=== PATIENT | female | born 1960 | race African-American/Black ===

== ENCOUNTER 2019-03-10 16:42 | Inpatient (IN) | payer OTHER ==
[~2019-03-10] VITALS: Ht 165.1 cm; Wt 98.0 kg
[2019-03-10 17:01] VITALS: Ht 165.1 cm; Wt 98.0 kg
[2019-03-10 18:02] LABS: BASOPHIL % 0.3 % (0-2); PLATELET COUNT 228 x10^3mcL (130-400); RED CELL DISTRIBUTION WIDTH 13.3 % (11.5-14.5)
[2019-03-10 18:06] LABS: CALCIUM 9.2 mg/dL (8.5-10.1); CARBON DIOXIDE 29.4 mmol/L (21-32); CHLORIDE SERUM 104 mmol/L (98-107); CREATININE SERUM 0.7 mg/dL (0.6-1.0); GFR1 > 60 mL/min; GLUCOSE SERUM 104 mg/dL (74-106); POTASSIUM SERUM 3.4 mmol/L (3.5-5.1); SODIUM SERUM 139 mmol/L (136-145)
[2019-03-10 18:11] LABS: ALBUMIN 3.5 g/dL (3.4-5.0); ALKALINE PHOSPHATASE 163 U/L (46-116); ALT/SGPT 99 U/L (14-59); AST/SGOT 72 U/L (15-37); BILIRUBIN TOTAL 0.9 mg/dL (0.20-1.00)
[2019-03-10 23:12] LABS: microscopic required? YES; urine erythrocyte NEGATIVE (NEGATIVE)
[2019-03-10 23:24] LABS: AMPHETAMINE QUAL UR NONE DETECTED (See below)
[2019-03-10 23:30] VITALS: BP 145/89
[2019-03-10 23:36] VITALS: BP 145/89
[2019-03-11 05:31] VITALS: BP 137/69
[2019-03-11 06:18] LABS: BASOPHIL % 0.3 % (0-2); PLATELET COUNT 221 x10^3mcL (130-400); RED CELL DISTRIBUTION WIDTH 13.6 % (11.5-14.5)
[2019-03-11 06:23] LABS: CALCIUM 9.2 mg/dL (8.5-10.1); CHLORIDE SERUM 104 mmol/L (98-107); CREATININE SERUM 0.6 mg/dL (0.6-1.0); GFR1 > 60 mL/min; GLUCOSE SERUM 121 mg/dL (74-106); MAGNESIUM 1.8 mg/dL (1.8-2.4); PHOSPHOROUS 2.5 mg/dL (2.5-4.9); POTASSIUM SERUM 3.9 mmol/L (3.5-5.1); SODIUM SERUM 138 mmol/L (136-145)
[2019-03-11 09:27] VITALS: BP 151/81
[2019-03-11 12:54] VITALS: BP 146/74
[2019-03-11 16:27] VITALS: BP 152/80
[2019-03-11 18:00] VITALS: BP 142/76
[2019-03-11 19:20] VITALS: BP 145/84
[2019-03-12 05:47] VITALS: BP 126/68
[2019-03-12 06:51] LABS: RED CELL DISTRIBUTION WIDTH 13.8 % (11.5-14.5)
[2019-03-12 06:57] LABS: CALCIUM 9.5 mg/dL (8.5-10.1); CARBON DIOXIDE 25.6 mmol/L (21-32); CHLORIDE SERUM 102 mmol/L (98-107); CREATININE SERUM 0.7 mg/dL (0.6-1.0); GFR1 > 60 mL/min; GLUCOSE SERUM 124 mg/dL (74-106); MAGNESIUM 1.9 mg/dL (1.8-2.4); PHOSPHOROUS 3.3 mg/dL (2.5-4.9); POTASSIUM SERUM 3.6 mmol/L (3.5-5.1); SODIUM SERUM 137 mmol/L (136-145)
[2019-03-12 08:04] LABS: BASOPHIL % 0 % (0-2)
[2019-03-12 08:05] LABS: PLATELET COUNT 272 x10^3mcL (130-400)
[2019-03-12 09:01] VITALS: BP 152/80
[2019-03-12 13:02] VITALS: BP 140/78
[2019-03-12 16:07] VITALS: BP 167/99
[2019-03-12 21:06] VITALS: BP 140/84
[2019-03-13 05:55] VITALS: BP 139/77
[2019-03-13 06:32] LABS: PLATELET COUNT 297 x10^3mcL (130-400); RED CELL DISTRIBUTION WIDTH 13.9 % (11.5-14.5)
[2019-03-13 06:44] LABS: BASOPHIL % 0 % (0-2)
[2019-03-13 08:25] VITALS: BP 145/70
[2019-03-13 10:17] LABS: CALCIUM 9.7 mg/dL (8.5-10.1); CARBON DIOXIDE 27.9 mmol/L (21-32); CHLORIDE SERUM 100 mmol/L (98-107); CREATININE SERUM 0.7 mg/dL (0.6-1.0); GFR1 > 60 mL/min; GLUCOSE SERUM 116 mg/dL (74-106); SODIUM SERUM 136 mmol/L (136-145)
[2019-03-13] MEDS ORDERED: SYMBICORT1 AE3 INH (11:47)
[2019-03-13] MEDS ORDERED: ZITHROMAX TRI-500 MG PO (11:48)
[2019-03-13] MEDS ORDERED: SINGULAIR10 MG PO (11:48)
[2019-03-13] MEDS ORDERED: PREDNISONE20 MG PO (11:49)
[2019-03-13] MEDS ORDERED: PREDNISONE10 MG PO (11:50)
[2019-03-13] MEDS ORDERED: PRE20 PO (11:50)
[2019-03-13] MEDS ORDERED: PREDNISONE5 MG PO (11:51)
[2019-03-13 12:27] VITALS: BP 145/70
[2019-03-13 12:53] VITALS: BP 140/82
== END 2019-03-13 14:00 | disposition home or self-care (01) | DRG 139 ==
LOC: ED 16:42 → MU 20:44
PROVIDERS: Emergency Medicine; Family Medicine; ADMIT Internal Medicine
DX: J18.9 Pneumonia, unspecified organism (principal); E87.6 Hypokalemia; R74.0 Nonspecific elevation of levels of transaminase and lactic acid dehydrogenase [LDH]; Z68.35 Body mass index [BMI] 35.0-35.9, adult; Z86.711 Personal history of pulmonary embolism; Z77.120 Contact with and (suspected) exposure to mold (toxic); Z86.718 Personal history of other venous thrombosis and embolism; Z79.01 Long term (current) use of anticoagulants
CPT/HCPCS: 82785; 83880; 87804; G0378; J0456; J0696; J1644; J2920; J2930; J7030; J7050; J7060; J7620; J7626; Q0092; Q9967